=== PATIENT | female | born 1995 | race African-American/Black ===

== ENCOUNTER 2021-01-26 00:02 | Emergency (ER) | payer SELFPAY ==
[~2021-01-26] VITALS: Ht 165.1 cm; Wt 72.6 kg
[2021-01-26] MEDS ORDERED: DONNATAL/LIDOCAINE/MAALOX 30 ML SUSP PO STA (00:19)
[2021-01-26] MEDS ORDERED: PEPCID20 MG PO (00:21)
[2021-01-26] MEDS ORDERED: BELLADONNA ALK/PHENOBARBITAL 5 ML UDC ONE (00:29)
[2021-01-26] MEDS ORDERED: LIDOCAINE VISC 2% SOLN 15 ML UDC ONE (00:29)
[2021-01-26] MEDS ORDERED: MAGNESIUM/ALUMINUM/SIMETHICONE 30 ML UDC ONE (00:29)
[2021-01-26] MEDS ORDERED: LIDOCAINE VISC 2% SOLN 15 ML UDC PO ONE (00:49)
[2021-01-26] MEDS ORDERED: BELLADONNA ALK/PHENOBARBITAL 5 ML UDC PO ONE (00:49)
[2021-01-26] MEDS ORDERED: MAGNESIUM/ALUMINUM/SIMETHICONE 30 ML UDC PO ONE (00:49)
== END 2021-01-26 01:10 | disposition home or self-care (01) ==
LOC: FSED 00:20
DX: R10.13 Epigastric pain (principal); D17.1 Benign lipomatous neoplasm of skin and subcutaneous tissue of trunk; K21.9 Gastro-esophageal reflux disease without esophagitis; F17.210 Nicotine dependence, cigarettes, uncomplicated
CPT/HCPCS: 93005; 99283